=== PATIENT | female | born 1975 | race African-American/Black ===

== ENCOUNTER 2016-12-05 00:55 | Emergency (ER) | payer OTHER ==
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
[2016-12-05 03:12] VITALS: BP 99/58
--- NOTE | 2016-12-05 07:58 | Diag Imaging Result Document ---
PROCEDURE NAME: HEAD W/O CONTRAST - 12/05/[address]: A CT dose reduction protocol was used. COMPARISON: None. FINDINGS: The ventricles and sulci are normal in size and contour. No intracranial mass or hemorrhage. The skull is intact. There is extensive paranasal sinusitis. There is also a left periorbital soft tissue contusion. IMPRESSION: Periorbital soft tissue contusion. Sinusitis. No intracranial injury. MTDD
--- NOTE | 2016-12-05 07:59 | Diag Imaging Result Document ---
PROCEDURE NAME: FACIAL BONES W/O CONTRAST - 12/05/2016 CT FACIAL BONES: A CT dose reduction protocol was used. COMPARISON: None. FINDINGS: There is extensive paranasal sinusitis. There is left periorbital soft tissue contusion. No fractures. Orbital contents are grossly normal. IMPRESSION: Extensive paranasal sinusitis. Left periorbital soft tissue contusion. No facial bone fracture. [facility]
== END 2016-12-05 03:05 | disposition home or self-care (01) ==
LOC: P.ED 00:55
DX: S01.81XA Laceration without foreign body of other part of head, initial encounter (principal); S00.93XA Contusion of unspecified part of head, initial encounter; R22.0 Localized swelling, mass and lump, head; R51 Headache; Y04.2XXA Assault by strike against or bumped into by another person, initial encounter
CPT/HCPCS: 70450; 70486